=== PATIENT | female | born 1960 | race Two or more races ===

== ENCOUNTER → 2019-06-21 | Outpatient (CLI) | payer OTHER | END | disposition home or self-care (01) | LOC: RX STUDY 08:34 | DX: R13.14 Dysphagia, pharyngoesophageal phase (principal) ==

== ENCOUNTER 2022-08-08 10:21 | Outpatient (CLI) | payer OTHER | END 2022-08-08 10:27 | disposition home or self-care (01) | LOC: RX STUDY 10:21 | DX: R13.14 Dysphagia, pharyngoesophageal phase (principal) ==

== ENCOUNTER 2022-10-29 08:55 | Outpatient (CLI) | payer OTHER | END 2022-10-29 09:05 | disposition home or self-care (01) | LOC: RAD 08:55 | PROVIDERS: ATTEND Internal Medicine Gastroenterology | DX: R13.14 Dysphagia, pharyngoesophageal phase (principal) ==